=== PATIENT | male | born 1955 | race Asian ===

== ENCOUNTER 2018-06-19 18:52 | Emergency (ER) | payer BC ==
[~2018-06-19] VITALS: Ht 182.9 cm; Wt 73.0 kg
[2018-06-19 18:58] VITALS: Ht 182.9 cm; Wt 73.0 kg
[2018-06-19 22:35] VITALS: BP 132/65
== END 2018-06-19 22:15 | disposition home or self-care (01) ==
LOC: ED 18:52 → EDBD 18:52 → ED 22:15
DX: J20.9 Acute bronchitis, unspecified (principal); I10 Essential (primary) hypertension; E11.9 Type 2 diabetes mellitus without complications; E78.00 Pure hypercholesterolemia, unspecified
CPT/HCPCS: 87804; J7512; J7613; J7644; Q0092

== ENCOUNTER 2019-05-21 13:56 | Emergency (ER) | payer BC ==
[~2019-05-21] VITALS: Ht 175.3 cm; Wt 77.1 kg
[2019-05-21 14:08] VITALS: Ht 175.3 cm; Wt 77.1 kg
[2019-05-21 15:19] LABS: CALCIUM 8.5 mg/dL (8.5-10.1); CARBON DIOXIDE 25.9 mmol/L (21-32); CREATININE SERUM 1.8 mg/dL (0.7-1.3)
[2019-05-21 15:20] LABS: BASOPHIL % 0.5 % (0-2); PLATELET COUNT 272 x10^3mcL (130-400); RED CELL DISTRIBUTION WIDTH 13.9 % (11.5-14.5)
[2019-05-21 15:23] LABS: ALBUMIN 3.5 g/dL (3.4-5.0); BILIRUBIN TOTAL 0.7 mg/dL (0.20-1.00); MAGNESIUM 1.7 mg/dL (1.8-2.4); TOTAL PROTEIN, SERUM 7.4 g/dL (6.4-8.2)
[2019-05-21 16:43] VITALS: BP 148/85
== END 2019-05-21 16:43 | disposition home or self-care (01) ==
LOC: ED 13:56
PROVIDERS: Emergency Medicine
DX: R10.816 Epigastric abdominal tenderness (principal); R05 Cough; R11.2 Nausea with vomiting, unspecified; R51 Headache; R42 Dizziness and giddiness; R06.02 Shortness of breath; I10 Essential (primary) hypertension; Z88.1 Allergy status to other antibiotic agents
CPT/HCPCS: 36415; 83880; 87804